=== PATIENT | female | born 1965 | race Caucasian/White ===

== ENCOUNTER 2024-08-13 01:27 | Day surgery (SDC) | payer OTHER, SELFPAY ==
[2024-07-28 09:41] VITALS: BMI 28.3
[2024-08-13 06:45] VITALS: BP 131/80; PULSE 94; RESP 16; TEMP 36.8; O2SAT 99
[2024-08-13] MEDS: LACTATED RINGERS 1,000 ML 150 ML IV CONT (06:53)
--- NOTE | 2024-08-13 07:28 | P.PNAN_ITS ---
Anes - Initial Pre Proc Eval Procedure: Operation Date: 08/13/24 08:00 Proposed Procedures p Screening Colonoscopy - Larry Hayes MD Date/Time: 08/13/24 07:28 Surgeon: Larry Hayes MD Pre Op Diagnosis: Neoplasm screening Patient Data Age: 59 Gender: F Height: 1.63 m Weight: 75.8 kg Last Vital Signs Temp 36.8 C 08/13/24 06:45 Pulse 94 08/13/24 06:45 Resp 16 08/13/24 06:45 BP 131/80 08/13/24 06:45 Pulse Ox 99 08/13/24 06:45 O2 Del Method Room Air 08/13/24 06:45 Allergies Allergy/AdvReac Type Severity Reaction Status Date / Time Penicillins Allergy Severe Hives Verified 08/13/24 06:44 Home Medications ?Medication ?Instructions ?Recorded ?Confirmed ?Type No Home Medications 12/12/23 07/28/24 History Patient hx anesthesia problems: none Family hx anesthesia problems: none Results Review: All pre-operative results and documents have been reviewed as part of the pre-operative evaluation. [facility] Past Medical History Medical History Fibroids Ovarian cyst Surgical History Surgical History Delivery by section xs 2 Family History Family History Mother Diabetes mellitus Grandparent Diabetes mellitus Social History Social History Smoking status: Former smoker Tobacco type: cigarettes Second hand tobacco smoke exposure: No Alcohol intake: current Drinks per week: 5 Alcohol use details: socially Substance use: current Substance use type: marijuana Last use: CBD TSC Do You Feel Safe in your Home?: Yes Lack of Transportation: No Lack of Food: Never True Current Housing: I Have Housing Concerned About Future Housing: No Difficulty Paying Gas/Electric Bills: No Difficulty Paying for Meds: No Currently Unemployed: No Education: Trade/Vocational Certificate Difficulty w/ Childcare or Family Care: No Living arrangements: with family Occupation/Education: retired Gender identity (if verbalized by the patient): Female Sexual Orientation (if Verbalized by the Patient): Straight or Heterosexual Spiritual care concerns: No Anes - Eval Final PreProcedure Day of Procedure 08/13/24 07:28 Patient weight: overweight Heart: regular rate and rhythm Lungs: clear to auscultation Airway: Mallampati scale class II Neurological: alert and oriented Last oral intake: >/= 8 hours ASA classification: II Emergent: no Anesthetic plan: proceed Anesthesia type and monitoring: general GIVS and standard monitoring Results Review: All pre-operative results and documents have been reviewed as part of the pre- operative evaluation. Informed Consent: The patient's anesthetic plan and its attendant risks and benefits were discussed with the patient/family/POA. Questions were solicited and answers provided to the satisfaction of the patient/family/POA.
[2024-08-13] MEDS: ONDANSETRON INJ 4 MG/2 ML VIAL IV PUSH (07:29)
--- NOTE | 2024-08-13 07:47 | PM.HPGS ---
History of Present Illness History of Present Illness Consent: Risks, benefits, and alternatives have been discussed and questions answered. Patient agrees to proceed with procedure. Chief complaint: Neoplasm screening Narrative: Neema Schafer is a 59 year old female here for first screening colonoscopy Review of Systems Review of Systems: All systems reviewed & are unremarkable except as noted in HPI and below PMFSH Past Medical History Medical History Fibroids Ovarian cyst Surgical History Surgical History Delivery by section xs 2 Family History Family History Mother Diabetes mellitus Grandparent Diabetes mellitus Social History Social History Smoking status: Former smoker Tobacco type: cigarettes Second hand tobacco smoke exposure: No Alcohol intake: current Drinks per week: 5 Alcohol use details: socially Substance use: current Substance use type: marijuana Last use: CBD TSC Do You Feel Safe in your Home?: Yes Lack of Transportation: No Lack of Food: Never True Current Housing: I Have Housing Concerned About Future Housing: No Difficulty Paying Gas/Electric Bills: No Difficulty Paying for Meds: No Currently Unemployed: No Education: Trade/Vocational Certificate Difficulty w/ Childcare or Family Care: No Living arrangements: with family Occupation/Education: retired Gender identity (if verbalized by the patient): Female Sexual Orientation (if Verbalized by the Patient): Straight or Heterosexual Spiritual care concerns: No Meds Home Medications and Allergies Home Medications ?Medication ?Instructions ?Recorded ?Confirmed ?Type No Home Medications 12/12/23 07/28/24 History Allergies Allergy/AdvReac Type Severity Reaction Status Date / Time Penicillins Allergy Severe Hives Verified 08/13/24 06:44 Vital Signs Vital Signs - 24 hr 08/13/24 06:45 Temperature 98.2 F Pulse Rate 94 Respiratory Rate 16 Blood Pressure 131/80 Pulse Oximetry 99 Oxygen Delivery Room Air Exam Const: General: comfortable and no acute distress HENMT: Face/Nose/Sinus: Normal nares present Eyes: General: appearance normal, both eyes and all related structures Neck: Neck: no JVD Resp: Auscultation: clear to auscultation bilaterally Cardio: Rate: regular rate Rhythm: regular rhythm GI: Inspection: non-distended GI Palp: Yes Soft to palpation Skin: General skin exam: normal color Neuro: General: gait normal Speech: normal speech Extrem: General: normal to inspection Psych: Mental Status: mental status grossly normal Assessment and Plan Assessment and plan (1) Encounter for screening colonoscopy: Code(s): Z12.11 - Encounter for screening for malignant neoplasm of colon Status: Acute Assessment and Plan: colonoscopy
[2024-08-13 08:08] VITALS: BP 105/56; PULSE 73; RESP 21; O2SAT 98
[2024-08-13 08:18] VITALS: BP 120/74; PULSE 70; RESP 21; O2SAT 98
[2024-08-13 08:28] VITALS: BP 124/75; PULSE 64; RESP 15; O2SAT 100
== END 2024-08-13 08:42 | disposition home or self-care (01) ==
PROVIDERS: Referring Provider Nurse Practitioner Family; Visit Provider Internal Medicine Gastroenterology
PROC: 0DJD8ZZ Inspection of Lower Intestinal Tract, Via Natural or Artificial Opening Endoscopic (ICD-10-PCS; CPT 45378; principal; 2024-08-13 08:00)
DX: Z12.11 Encounter for screening for malignant neoplasm of colon (principal); D12.8 Benign neoplasm of rectum; K57.30 Diverticulosis of large intestine without perforation or abscess without bleeding; Z87.891 Personal history of nicotine dependence; F12.90 Cannabis use, unspecified, uncomplicated
CPT/HCPCS: 45385; 88305; J2003; J2405; J2704; J7120

== ENCOUNTER 2025-04-06 01:02 | Day surgery (SDC) | payer OTHER, SELFPAY ==
[2025-03-17 16:47] VITALS: BMI 28.6
--- NOTE | 2025-03-17 16:48 | SUR.PREOP ---
Report to the Outpatient Waiting Room, entrance under the green pavilion located off [facility], at time ___1145____ on date ___03/23/2025____. Planned Procedure Time: ___1345 .? Time changes happen often and if your time is changed the preop area will call you the afternoon before. - You and your visitor will be asked to self-screen and do not enter if you have any COVID symptoms. Please call surgeon if you need to reschedule. - A mask is optional within the hospital at this time. Patients may have clear liquids (water, carbonated beverages, clear teas, apple juice) until 3 hours prior to surgery with a maximum of 20 ounces. - No food from midnight until time of surgery and no smoking, or chewing tobacco (or any form of nicotine). No chewing gum, candy or mints. - Infants may have breast milk until 4 hours before surgery, formula 6 hours prior to surgery. - Children will be allowed to drink immediately following surgery.? If applicable, please bring a bottle or sippy cup to assist with drinking. Juice, water, soda, and popsicles are readily available.? For infants on formula, please bring formula the day of surgery.? Pacifiers are allowed. Take only the following medications with a SIP of water on the morning of surgery: N/A DO NOT STOP ANY OF YOUR OTHER PRESCRIPTION MEDICATIONS PRIOR TO SURGERY EXCEPT THE FOLLOWING Hold all vitamins and supplements for 3 days per anesthesiologist. Medications to discontinue per physician N/A Date to take last dose Please no make-up, nail chinese, hairspray, perfume, deodorant, or body powder the day of surgery.? No jewelry (including any body piercings) or valuables the day of surgery, leave them at home.? Please take a shower or bath the night before, or the morning of, surgery with an antibacterial soap.? Wear comfortable, loose fitting clothing.? Children are encouraged to wear pajamas. - Jewelry must be removed prior to entering the operating room.? Rings and piercings that are not removed may be cut off. - The hospital will not accept responsibility for valuables.? - Please leave all valuables, including medications, at home the day of surgery. If you are going home after surgery, a licensed hammer driver must drive you home.? - NO public transportation without another adult if you receive anesthesia. - We recommend that an adult stay with you for 24 hours following discharge. - We also recommend that you do not drive, make important decision, drink alcoholic beverages, or take any drugs that were not prescribed by your health care provider for at least 24 hours after your discharge time. For Pediatric surgeries, we recommend two adults accompany the child home. Follow any additional instructions given to you from your surgeon. Telephone instructions given to ____Neema and asked if any additional questions and then verbalized understanding. Patient advised to call surgeon office or pre surgery nurse liaison [phone] if any additional questions.
--- NOTE | 2025-03-25 16:46 | PC.NURSE ---
Report to the Outpatient Waiting Room, entrance under the green pavilion located off [facility], at time 1200 on date 04/06/25. Planned Procedure Time: 1400.? Time changes happen often and if your time is changed the preop area will call you the afternoon before. - You and your visitor will be asked to self-screen and do not enter if you have any COVID symptoms. Please call surgeon if you need to reschedule. - A mask is optional within the hospital at this time. Patients may have clear liquids (water, carbonated beverages, clear teas, apple juice) until 3 hours prior to surgery with a maximum of 20 ounces. 1100 - No food from midnight until time of surgery and no smoking, or chewing tobacco (or any form of nicotine). No chewing gum, candy or mints. - Infants may have breast milk until 4 hours before surgery, infant formula 6 hours prior to surgery. - Children will be allowed to drink immediately following surgery.? If applicable, please bring a bottle or sippy cup to assist with drinking. Juice, water, soda, and popsicles are readily available.? For infants on formula, please bring formula the day of surgery.? Pacifiers are allowed. Take only the following medications with a SIP of water on the morning of surgery: N/A DO NOT STOP ANY OF YOUR OTHER PRESCRIPTION MEDICATIONS PRIOR TO SURGERY EXCEPT THE FOLLOWING Hold all vitamins and supplements for 3 days per anesthesiologist. Medications to discontinue per physician N/A Date to take last dose N/A Please no make-up, nail vietnamese, hairspray, perfume, deodorant, or body powder the day of surgery.? No jewelry (including any body piercings) or valuables the day of surgery, leave them at home.? Please take a shower or bath the night before, or the morning of, surgery with an antibacterial soap.? Wear comfortable, loose fitting clothing.? Children are encouraged to wear pajamas. - Jewelry must be removed prior to entering the operating room.? Rings and piercings that are not removed may be cut off. - The hospital will not accept responsibility for valuables.? - Please leave all valuables, including medications, at home the day of surgery. If you are going home after surgery, a licensed driver service technician must drive you home.? - NO public transportation without another adult if you receive anesthesia. - We recommend that an adult stay with you for 24 hours following discharge. - We also recommend that you do not drive, make important decision, drink alcoholic beverages, or take any drugs that were not prescribed by your health care provider for at least 24 hours after your discharge time. For Pediatric surgeries, we recommend two adults accompany the child home. Follow any additional instructions given to you from your surgeon. Telephone instructions given to Patient- Neema Schafer and asked if any additional questions and then verbalized understanding. Patient advised to call surgeon office or pre surgery nurse liaison [phone] if any additional questions.
--- NOTE | 2025-03-25 16:47 | PC.NURSE ---
Patient's health history, home medications, allergies, and preferred pharmacy unchanged from original pre-op interview. Patient given new surgery date and surgery and arrival times.
--- NOTE | 2025-04-05 16:13 | PM.IMHP ---
H&P: HPI History of Present Illness Date/Time: 04/05/25 16:13 Chief Complaint: abnormal pap smear Narrative: Neema is a postmenopausal 59yo P2002 who presents for planned surgery. Her pap smear was normal, but HPV positive. Specific testing was done and she is positive for HPV 16; in 01/2024. Colpo showed SONDRA 1 in 03/2024 and 02/2025. Pap smear 02/2025 was once again NILM/HPV 16 +. Review of Systems Constitutional: Constitutional: Denies chills, Denies fever(s) and Denies headache(s) Eyes: Eyes: Denies change in vision ENT: Denies dizziness and Denies headache(s) Cardiovascular: Cardiovascular: Denies chest pain and Denies dyspnea Respiratory: Respiratory: Denies cough and Denies dyspnea Gastrointestinal: Gastrointestinal: Denies abdominal pain and Denies change in stool character Genitourinary: Genitourinary: Denies abnormal menses, Denies pelvic pain, Denies vaginal discharge, Denies vaginal odor and Denies vaginal pruritus Neurologic: Denies dizziness and Denies headache(s) Psychiatric: Psychiatric: Denies anxiety and Denies depression [facility] Past Medical History Medical History Fibroids Ovarian cyst Surgical History Surgical History Delivery by section xs 2 Family History Family History Mother Diabetes mellitus Grandparent Diabetes mellitus Social History Social History Smoking status: Former smoker Tobacco type: cigarettes Second hand tobacco smoke exposure: No Alcohol intake: current Drinks per week: 5 Alcohol use details: socially Substance use: current Substance use type: marijuana Other substance usage details: Nightly Last use: CBD TSC Do You Feel Safe in your Home?: Yes Lack of Transportation: No Lack of Food: Never True Current Housing: I Have Housing Concerned About Future Housing: No Difficulty Paying Gas/Electric Bills: No Difficulty Paying for Meds: No Currently Unemployed: No Education: Trade/Vocational Certificate Difficulty w/ Childcare or Family Care: No Living arrangements: with family Occupation/Education: retired Gender identity (if verbalized by the patient): Female Sexual Orientation (if Verbalized by the Patient): Straight or Heterosexual Spiritual care concerns: No Meds Home Medications and Allergies Home Medications ?Medication ?Instructions ?Recorded ?Confirmed ?Type No Home Medications 12/12/23 03/17/25 History Allergies Allergy/AdvReac Type Severity Reaction Status Date / Time Penicillins Allergy Severe Hives Verified 03/25/25 16:45 Exam Const: General: cooperative, healthy appearing, comfortable and no acute distress Orientation/consciousness: patient oriented x3 Resp: Effort & Inspection: normal respiratory effort Cardio: Rate: regular rate GI: Inspection: normal to inspection GI Palp: No abdominal tenderness and Yes Soft to palpation : Other: deferred to OR Skin: General skin exam: normal color Neuro: General: patient oriented x3 Extrem: General: normal to inspection Psych: Appearance: grossly normal Affect: normal affect Attitude: cooperative Assessment and Plan Assessment and plan (1) Human papillomavirus (HPV) type 16 DNA detected in cervical specimen: Code(s): R87.810 - Cervical high risk human papillomavirus (HPV) DNA test positive Status: Acute Plan - Proceed with LEEP, top hat, ECC as I was unable to sample her endocervix and she has a high risk HPV (16) - Risks and benefits explained in detail
--- NOTE | 2025-04-06 07:09 | WPDHPUPDATE1 ---
History and Physical Update Update Date/Time: 04/06/25 07:09 History and Physical has been reviewed, including an updated exam of the patient. There are NO changes in the patient's condition. Risks, benefits, and alternatives have been discussed and questions answered. Patient agrees to proceed with LEEP, top hat, ECC.
--- NOTE | 2025-04-06 08:17 | WPDANESEPPF ---
Anes - Initial Pre Proc Eval Procedure: Operation Date: 04/06/25 14:00 Proposed Procedures p Loop Electrical Excision Procedure - Hoda Link MD Date/Time: 04/06/25 08:17 Surgeon: Hoda Link MD Pre Op Diagnosis: Cervical Dysplasia Patient Data Age: 59 Gender: F Height: 1.63 m Weight: 75.7 kg Allergies Allergy/AdvReac Type Severity Reaction Status Date / Time Penicillins Allergy Severe Hives Verified 04/17/25 09:10 Home Medications ?Medication ?Instructions ?Recorded ?Confirmed ?Type No Home Medications 12/12/23 03/17/25 History Patient hx anesthesia problems: none Family hx anesthesia problems: none Results Review: All pre-operative results and documents have been reviewed as part of the pre-operative evaluation. [facility] Past Medical History Medical History Anxiety Fibroids Ovarian cyst Surgical History Surgical History History of gynecologic surgery LEEP /04/06/2025 +hpv benign Delivery by section xs 2 Family History Family History Mother Diabetes mellitus Grandparent Diabetes mellitus Social History Social History (Updated 04/17/25 @ 09:11 by Lowell Whitley MA) Smoking packs per day: 0.5 Smoking cigarettes per day: 10.0 Years smoked: 15 Smoking pack-years: 7.50 Smoking status: Former smoker Tobacco type: cigarettes Second hand tobacco smoke exposure: No Smoking end date: 09/03/96 Alcohol intake: current Drinks per week: 5 Alcohol use details: socially Substance use: current Substance use type: marijuana Other substance usage details: Nightly Last use: CBD TSC Current Housing: Decline to Answer Concerned About Future Housing: Decline to Answer Difficulty Paying Gas/Electric Bills: Decline to Answer Difficulty Paying for Meds: Decline to Answer Currently Unemployed: Decline to Answer Education: Decline to Answer Difficulty w/ Childcare or Family Care: Decline to Answer Living arrangements: with family Occupation/Education: retired Gender identity (if verbalized by the patient): Female Sexual Orientation (if Verbalized by the Patient): Straight or Heterosexual Spiritual care concerns: No Anes - Eval Final PreProcedure Day of Procedure 04/06/25 08:17 Patient weight: normal Heart: regular rate and rhythm Lungs: clear to auscultation and normal air movement Airway: Mallampati scale class II Neurological: alert and oriented Last oral intake: >/= 8 hours ASA classification: II Emergent: no Anesthetic plan: proceed Anesthesia type and monitoring: general GIVS and standard monitoring Results Review: All pre-operative results and documents have been reviewed as part of the pre-operative evaluation. Informed Consent: The patient's anesthetic plan and its attendant risks and benefits were discussed with the patient/family/POA. Questions were solicited and answers provided to the satisfaction of the patient/family/POA.
[2025-04-06] MEDS: ACETAMINOPHEN 500 MG TABLET 1000 MG PO (12:15)
[2025-04-06 12:45] VITALS: BMI 29.4
[2025-04-06] MEDS: LACTATED RINGERS 1,000 ML 30 ML IV CONT (12:45)
--- NOTE | 2025-04-06 13:45 | P.PNAN_ITS ---
Anes - Initial Pre Proc Eval Procedure: Operation Date: 04/06/25 14:00 Proposed Procedures p Loop Electrical Excision Procedure - Hoda Link MD Date/Time: 04/06/25 13:45 Surgeon: Hoda Link MD Pre Op Diagnosis: Cervical Dysplasia Patient Data Age: 59 Gender: F Height: 1.63 m Weight: 77.7 kg Allergies Allergy/AdvReac Type Severity Reaction Status Date / Time Penicillins Allergy Severe Hives Verified 04/06/25 12:58 Home Medications ?Medication ?Instructions ?Recorded ?Confirmed ?Type No Home Medications 12/12/23 03/17/25 History Patient hx anesthesia problems: none Family hx anesthesia problems: none Results Review: All pre-operative results and documents have been reviewed as part of the pre- operative evaluation. [facility] Past Medical History Medical History Anxiety Fibroids Ovarian cyst Surgical History Surgical History Delivery by section xs 2 Family History Family History Mother Diabetes mellitus Grandparent Diabetes mellitus Social History Social History Smoking status: Former smoker Tobacco type: cigarettes Second hand tobacco smoke exposure: No Alcohol intake: current Drinks per week: 5 Alcohol use details: socially Substance use: current Substance use type: marijuana Other substance usage details: Nightly Last use: CBD TSC Do You Feel Safe in your Home?: Yes Lack of Transportation: No Lack of Food: Never True Current Housing: I Have Housing Concerned About Future Housing: No Difficulty Paying Gas/Electric Bills: No Difficulty Paying for Meds: No Currently Unemployed: No Education: Trade/Vocational Certificate Difficulty w/ Childcare or Family Care: No Living arrangements: with family Occupation/Education: retired Gender identity (if verbalized by the patient): Female Sexual Orientation (if Verbalized by the Patient): Straight or Heterosexual Spiritual care concerns: No Anes - Eval Final PreProcedure Day of Procedure 04/06/25 13:45 Patient weight: overweight Heart: regular rate and rhythm Lungs: clear to auscultation Airway: Mallampati scale class II Neurological: alert and oriented Last oral intake: >/= 8 hours ASA classification: II Emergent: no Anesthetic plan: proceed Anesthesia type and monitoring: general GIVS and standard monitoring Results Review: All pre-operative results and documents have been reviewed as part of the pre- operative evaluation. Informed Consent: The patient's anesthetic plan and its attendant risks and benefits were discussed with the patient/family/POA. Questions were solicited and answers provided to the satisfaction of the patient/family/POA.
[2025-04-06] MEDS: FERRIC SUBSULFATE 8 ML SOLUTION WITH APPLICATOR TOPICAL (14:04)
[2025-04-06] MEDS: BUPIVACAINE/EPINEPHRINE 0.5% 50 ML VIAL 10 ML INFILTRATE (14:04)
[2025-04-06] MEDS: IODINE/POTASSIUM IODIDE 8 ML SOLUTION TOPICAL (14:04)
--- NOTE | 2025-04-06 14:09 | S_PTH ---
PATIENT: Neema Schafer LOC: [facility] U#:[id number] AGE/SX: 59/F ROOM: RE04/06/[address]: Hoda Link MD : 1965 BED: DIS: 04/06/2025 SPEC #: [id number] RECD: 04/06/25 14:39 STATUS: ARLETTE REMiracle #: [id number] LILIAN: 04/06/25 14:[address]: Hoda Link DEPT: [facility] Surgical RECD BY: Viki Garcia ENTERED: 04/06/25 14:39 SP TYPE: Surgical OTHR DR: YOGHURT MAKER PHYSICIAN Tissues: A - Leep/Cone B - Leep/Cone C - Leep/Cone D - Endocervical Curettings Procedures: Hematoxylin and Eosin Stain Gross and Microscopic Level 4 Gross and Microscopic Level 5
[2025-04-06 14:18] VITALS: BP 109/57; PULSE 81; RESP 18
--- NOTE | 2025-04-06 14:21 | P.OP_ITS ---
Procedure Note - Detailed Date of Procedure 04/06/25 Pre-op Diagnosis Cervical Dysplasia HPV 16+ Post-op Diagnosis Same Procedure Performed LEEP, top hat, ECC Surgeon Hoda Link MD Anesthesia MAC and Local (10cc of 0.5% marcaine w/ epi) Findings cervix flush. lugol's applied; no obvious hypopigmentation appreciated. Description of Procedure Neema was taken to the operating room where she was placed under MAC sedation without complications. She was then prepped and draped in the normal fashion in the dorsal lithotomy position with her legs in low Chris stirrups. A time-out was performed and no preoperative antibiotics were indicated. A coated spe culum attached to suction was then placed within the vagina, where the cervix was easily identified. Lugol?s solution was then applied to the cervix. The cervix was then injected with 0.5% Marcaine with epinephrine (10cc were used). The cervix was noted to be flush and small; unable to do only one swipe with a normal loop. Using the smallest loop, the LEEP was then obtained in two separate swipes from the patient?s left to right (anterior portion and posterior portion). A top-hat was then obtained in the same manner. An ECC was then collected. The LEEP bed was then cauterized using the roller ball. Monsel?s solution was then placed in the LEEP bed. Good hemostasis was noted. Sponge, lap, instrument, and needle counts were correct at the end of the procedure. The patient was awoken from anesthesia and taken to recovery in a stable condition with plans of same-day discharge home. Estimated Blood Loss 5 IV Fluids 800 Pathology Yes (anterior leep, posterior leep, top hat, ECC) Complications No immediate complications Condition Stable Disposition Same day [facility] Billing Surgery - Charge Forward: Surgery Billing
[2025-04-06 14:45] VITALS: BP 108/64; PULSE 70; RESP 18; O2SAT 97
[2025-04-06 15:15] VITALS: BP 125/75; PULSE 59; RESP 18
== END 2025-04-06 15:20 | disposition home or self-care (01) ==
PROVIDERS: Visit Provider Obstetrics & Gynecology
PROC: 0UBC7ZZ Excision of Cervix, Via Natural or Artificial Opening (ICD-10-PCS; CPT 57522; principal; 2025-04-06 14:00)
DX: R87.810 Cervical high risk human papillomavirus (HPV) DNA test positive (principal); F41.9 Anxiety disorder, unspecified; F12.90 Cannabis use, unspecified, uncomplicated; Z87.891 Personal history of nicotine dependence
CPT/HCPCS: 57522; 88305; 88307; A9270; J2250; J2704; J3010; J7120